=== PATIENT | male | born 1975 ===

== ENCOUNTER 2017-12-12 15:53 | Emergency (ER) | payer OTHER ==
[~2017-12-12] VITALS: Ht 167.6 cm; Wt 79.4 kg
[2017-12-12 16:47] LABS: ABSOLUTE BASOPHIL COUNT 0 /CUMM (0.0-0.2); ABSOLUTE EOSINOPHIL COUNT 0.1 /CUMM (0.0-0.7); ABSOLUTE GRANULOCYTE CT 4.3 /CUMM (1.4-6.5); ABSOLUTE LYMPH COUNT 2.2 /CUMM (1.2-3.4); ABSOLUTE MONOCYTE COUNT 0.5 /CUMM (0.10-0.60); BASOPHIL % 0.6 % (0.0-2.0); EOSINOPHIL % 1.8 % (0-5); GRANULOCYTE % 59.5 % (42.2-75.2); MEAN CORPUSCULAR HGB 29.7 PG (27.0-31.0); MEAN CORPUSCULAR VOLUME 87.5 FL (80.0-94.0); MEAN PLATELET VOLUME 7.3 FL (7.4-10.4); PLATELET COUNT 238 /CUMM (130-400); RBC DISTRIBUTION WIDTH 12.4 % (11.5-14.5); RED BLOOD CELL CT 5.72 /CUMM (4.70-6.10); WHITE BLOOD CELL COUNT 7.3 /CUMM (4.8-10.8)
--- NOTE | 2017-12-12 17:00 | RADIOLOGY REPORT ---
EXAMINATION: XR CHEST CLINICAL INFORMATION: Dyspnea COMPARISON: None TECHNIQUE: 2 views of the chest were obtained. FINDINGS: The cardiomediastinal silhouette is normal. The lungs are clear no consolidation, pulmonary edema, pleural effusion, pneumothorax. The osseous structures are unremarkable. IMPRESSION: No acute abnormality.
--- NOTE | 2017-12-12 17:08 | ED CARDIAC/CP/PALPITATIONS ---
History of Present Illness General Chief Complaint: General Adult Stated Complaint: SOB,"TIGHTNESS IN MY CHEST" Source: patient, old records Exam Limitations: no limitations Vital Signs & Intake/Output Vital Signs & Intake/Output Vital Signs Date Time Temp Pulse Resp B/P B/P Pulse O2 O2 Flow FiO2 Mean Ox Delivery Rate 12/12 2030 97.0 89 18 134/88 97 Room Air Room Air 12/12 1623 97.0 102 18 146/92 98 Room Air Room Air ED Intake and Output 12/13 0000 12/12 1200 Intake Total Output Total Balance Patient 175 lb Weight Weight Reported by Patient Measurement Method Allergies Coded Allergies: No Known Allergies (12/12/17) Reconcile Medications Albuterol Sulfate (Proair Hfa) 90 MCG HFA.AER.AD 2 PUF INH Q4-6 PRN PRN dyspnea Triage Note: PT TO ED WITH C/O SOB SINCE YESTERDAY MORNING, WORKS NIGHTS, HAVING HARD TAKING A DEEP BREATH THIS MORNING, O2 SATS 97%-98% ON ROOM AIR IN TRIAGE. PT NOTED WITH DRY THROAT, CLEARING THROAT MULTIPLE TIMES IN TRIAGE. PT EVALUATED BY [facility] WHALEN. Triage Nurses Notes Reviewed? yes Onset: Abrupt Duration: day(s): (3), constant Timing: recent history Quality/Severity: moderate, tightness Location: central Radiation: no radiation Activities at Onset: none Associated Symptoms: denies HPI: 22-year-old male with no medical history presents to the ER for evaluation complaining of feeling short of breath easily winded, and a squeezing tightness over his chest with inspiration for the past 3 days. The patient denies history of similar episodes in the past. No coughing hemoptysis recent travel or immobility. No leg swelling. No abdominal pain nausea vomiting diarrhea. He does not smoke. His father of a heart attack in his 60s. There is no back pain arm or jaw pain. He denies any drug use. No history of asthma or other lung disease. (Eusebio WHALEN,Deniz) Past History Travel History Traveled to [place] past 21 day No Medical History Any Pertinent Medical History? see below for history Neurological: NONE EENT: NONE Cardiovascular: hypertension, hyperlipidemia Respiratory: NONE Gastrointestinal: NONE Hepatic: NONE Renal: NONE Musculoskeletal: NONE Psychiatric: NONE Endocrine: diabetes Blood Disorders: NONE Cancer(s): NONE Surgical History Surgical History: non-contributory Psychosocial History What is your primary language Greek Tobacco Use: Never used ETOH Use: occasional use Illicit Drug Use: denies illicit drug use Family History Hx Contributory? No (Deniz Souza) Review of Systems Review of Systems Constitutional: Reports: see HPI. Comments Review of systems: See HPI, All other systems negative. Constitutional, no chills no fever HEENT: no sore throat no congestion Cardiovascular: chest pain Skin: no rashes, no change in skin Respiratory: dyspnea no cough no sputum no hemoptysis GI: No nausea no vomiting, no diarrhea, no bloating/constipation : No dysuria No hematuria, no frequency Muscle skeletal: No joint pain, no back pain Neurologic: , no headache Heme/endocrine: No bruising (Deniz Souza) Physical Exam Physical Exam General Appearance: well developed/nourished, no apparent distress, alert, awake Cardiovascular: regular rate/rhythm Comments: Well-developed well-nourished person in no acute distress HEENT: Normal EENT exam; PERRL, EOMI, HEAD is atraumatic. moist mucous membranes. Neck: Supple, normal range of motion Back: Nontender, Full range of motion Cardiovascular: Regular rate and rhythms no murmurs rubs or gallops, normal JVP Respiratory: Chest nontender.There were no bony deformities, no asymmetry. No respiratory distress. Patient speaking in full complete sentences. Breath sounds clear to auscultation bilaterally: NO W/R/R Abdomen: Soft, nontender Extremity: No edema, full range of motion of extremities, , 5 out of 5 strength noted to bilateral upper and lower extremities Neuro: Alert oriented x3, motor sensory normal, There were no obvious focal neurologic abnormalities. Skin: No appreciable rash on exposed skin, skin is warm and dry. Psych: Mood and affect is normal, memory and judgment is normal. Core Measures ACS in differential dx? Yes CVA/TIA Diagnosis No Sepsis Present: No Sepsis Focused Exam Completed? No (Deniz Souza) Progress Differential Diagnosis: AMI, aortic dissection, atrial fibrillation, musculoskeletal pain, myocarditis, pericarditis, pneumonia, pneumothorax, pulmonary embolism, unstable angina Plan of Care: Orders Procedure Date/time Status TROPONIN LEVEL 12/12 1820 Complete EKG 12/12 1820 Active Add-on Test (ER Only) 12/12 1716 Active D-DIMER 12/12 1626 Complete TROPONIN LEVEL 12/12 1603 Complete COMPREHENSIVE METABOLIC PANEL 12/12 1603 Complete CBC WITHOUT DIFFERENTIAL 12/12 1603 Complete EKG 12/12 1603 Active Laboratory Tests 12/12/17 1810: Troponin I < 0.01 12/12/17 1626: Anion Gap 14, Estimated GFR > 60, BUN/Creatinine Ratio 25.7 H, Glucose 177 H, Calcium 10.0, Total Bilirubin 0.8, AST 37, ALT 66, Alkaline Phosphatase 63, Troponin I < 0.01, Total Protein 8.4 H, Albumin 5.2 H, Globulin 3.2, Albumin/ Globulin Ratio 1.6, D-Dimer High Sensitivty < 200, CBC w Diff NO MAN DIFF REQ, RBC 5.72, MCV 87.5, MCH 29.7, MCHC 34.0, RDW 12.4, MPV 7.3 L, Gran % 59.5, Lymphocytes % 30.8, Monocytes % 7.3, Eosinophils % 1.8, Basophils % 0.6, Absolute Granulocytes 4.3, Absolute Lymphocytes 2.2, Absolute Monocytes 0.5, Absolute Eosinophils 0.1, Absolute Basophils 0 i discussed with the patient all his labs to date , Dangelo ordered I discussed with him need for repeat troponin at 1820. Patient reports no improvement in symptoms with breathing treatment, repeat troponin pending, d-dimer negative at discussed with plan of care. Case discussed with Dr. Alcala agrees with plan 1930 I discussed with the patient at length all of their results. I had an extensive conversation regarding need for close follow up with their primary care physician this week as well as return precautions. I answered all of their questions, they feel comfortable with the plan and follow-up care. I discussed with the patient/family the medications that they will receive. I gave them signs and symptoms that could indicate an adverse reaction. I have advised them to limit their activities until they can see how they respond to the medication. Diagnostic Imaging: Viewed by Me: Radiology Read. Discussed w/RAD: Radiology Read. Radiology Impression: PATIENT: LANCE SEARS PRESENT AGE: 42 PATIENT ACCOUNT NO: [id number] : 76 LOCATION: [facility] ORDERING PHYSICIAN: Lulú WHALEN SERVICE DATE: 12/12/17-1625 EXAM TYPE: RAD - XRY-CHEST XRAY, TWO VIEWS EXAMINATION: XR CHEST CLINICAL INFORMATION: Dyspnea COMPARISON: None TECHNIQUE: 2 views of the chest were obtained. FINDINGS: The cardiomediastinal silhouette is normal. The lungs are clear no consolidation, pulmonary edema, pleural effusion, pneumothorax. The osseous structures are unremarkable. IMPRESSION: No acute abnormality. DICTATED BY: Kalyan Snyder MD DATE/TIME DICTATED:12/12/171655 MANAGER INTERN:JUJU DATE/TIME TRANSCRIBED:12/12/171655 CONFIDENTIAL, DO NOT COPY WITHOUT APPROPRIATE AUTHORIZATION. <Electronically signed in Other Vendor System> SIGNED BY: Kalyan Snyder MD 12/12/17 1700 Initial ED EKG: normal intervals, normal p-waves, normal QRS complex, normal sinus rhythm Repeat EKG: unchanged (Deniz Souza) Departure Departure Time of Disposition: 1926 Disposition: HOME OR SELF CARE Condition: Stable Clinical Impression Primary Impression: Dyspnea Referrals: Patient Has No Primary Care Dr (PCP/Family) [facility] Additional Instructions: Follow up with pmd Dr shelby on friday. Pro-air inhaler as discussed. return to the ER with any concerns Departure Forms: Customer Survey General Discharge Information Prescriptions: Current Visit Scripts Albuterol Sulfate (Proair Hfa) 2 PUF INH Q4-6 PRN PRN dyspnea #1 INHAL (Deniz Souza) PA/CIGAR SORTER Co-Sign Statement Statement: ED Attending supervision documentation- [] I saw and evaluated the patient. I have also reviewed all the pertinent lab results and diagnostic results. I agree with the findings and the plan of care as documented in the PA's/CIGAR SORTER's documentation. [X] I have reviewed the ED Record and agree with the PA's/CIGAR SORTER's documentation. [] Additions or exceptions (if any) to the PAs/CIGAR SORTER's note and plan are summarized below: [] (Fredrick MCCURDY,Scott Rincon) Critical Care Note Critical Care Note Critical Care Time: non-applicable (Deniz Souza)
[2017-12-12] MEDS ORDERED: PROAIR HFA8.5 GM INH (19:27)
[2017-12-12 20:30] VITALS: BP 134/88
== END 2017-12-12 20:31 ==
LOC: ERH 15:53
PROVIDERS: Physician Assistant Medical
DX: R06.00 Dyspnea, unspecified (principal); R07.89 Other chest pain
CPT/HCPCS: 1263; 71046; 93005; 93010